=== PATIENT | male | born 1990 | race Caucasian/White ===

== ENCOUNTER 2019-06-05 12:33 | Emergency (ER) | payer OTHER ==
[~2019-06-05] VITALS: Ht 177.8 cm; Wt 117.9 kg
[2019-06-05] MEDS ORDERED: LEVOTHYROXINE125 MCG (12:47)
[2019-06-05] MEDS ORDERED: NORVASC2.5 M1 (12:48)
== END 2019-06-05 18:44 | disposition home or self-care (01) ==
LOC: EDSEX 12:33 → ER 12:33
DX: S62.635A Displaced fracture of distal phalanx of left ring finger, initial encounter for closed fracture (principal); S62.623A Displaced fracture of middle phalanx of left middle finger, initial encounter for closed fracture; W17.89XA Other fall from one level to another, initial encounter; Y93.79 Activity, other specified sports and athletics; Y92.89 Other specified places as the place of occurrence of the external cause; Y99.8 Other external cause status